=== PATIENT | female | born 1975 | race Caucasian/White ===

== ENCOUNTER → 2021-10-29 16:53 | Outpatient (CLI) | payer BC, SELFPAY | PROVIDERS: Visit Provider Nurse Practitioner | DX: U07.1 COVID-19 (principal) | CPT/HCPCS: C9803; U0003; U0005 ==

== ENCOUNTER 2024-02-05 09:03 | Emergency (ER) | payer OTHER, SELFPAY ==
[2024-02-05 09:20] VITALS: BP 161/87; PULSE 79; RESP 18; TEMP 36.9; O2SAT 96; BMI 49.1
--- NOTE | 2024-02-05 09:27 | ED_ITS ---
Discharge Plan Disposition Patient Disposition: Home, Self-Care Condition: Good Prescriptions Prescriptions: New azithromycin [Zithromax] 250 mg tablet 250 mg PO UD DOSE PK Qty: 6 0RF Rx Instructions: Take two (2) tablets today, then one (1) tablet days #2 thru #5 benzonatate 100 mg capsule 100 mg PO TIDP PRN (Reason: Cough) Qty: 30 0RF methylprednisolone 4 mg Tablets,Dose Pack 4 mg PO DIRECTED 6 Days Qty: 21 0RF Rx Instructions: Take 1 pack as directed for 6 days Referrals Follow up/Referrals: Gianna Coyne APRN [Primary Care Provider] - See instructions Activity Restrictions/Add. Instructions Additional Instructions/Restrictions: Drink plenty of fluids. Take tylenol or ibuprofen for pain or fever. Take the medications as directed. Follow up with your regular doctor. GO TO THE ER FOR ANY WORSENING SYMPTOMS Clinical Impressions Clinical Impression: Pharyngitis, Bronchitis Stand Alone Forms Stand Alone Forms: Work/School Release Instructions Patient Instructions: Sore Throat, DI for Pharyngitis/Tonsillopharyngitis -- Adult, DI for Acute Bronchitis Discharge ED Provider: Max Higgins [facility] – [place] HPI General Stated complaint: deep painful cough congestion ear pain fever Time Seen by Provider: 02/05/24 09:27 History of Present Illness Provider Complaint: She states that for the past 3 days she has had worsening chest tightness, sore throat and malaise. Related Data Previous Rx's Medication Instructions Recorded azithromycin 250 mg tablet 250 mg PO UD DOSE PK #6 tabs 02/05/24 (Zithromax) benzonatate 100 mg capsule 100 mg PO TIDP PRN Cough #30 caps 02/05/24 methylprednisolone 4 mg tablets in 4 mg PO DIRECTED 6 days #21 tabs 02/05/24 a dose pack Allergies Allergy/AdvReac Type Severity Reaction Status Date / Time latex [LATEX] Allergy Unknown Verified 02/05/24 09:33 Penicillins [PENICILLINS] Allergy Unknown Verified 02/05/24 09:33 [facility] Disclaimer: The information contained in this section may have been updated after the patient was seen, as this information can be updated by other users. Social History Smoking Status: Never smoker alcohol intake: never substance use type: denies use current occupational status: unemployed Travel in the last 8 weeks: None household members: family housing: house ROS Obtained: Yes All systems reviewed & no additional complaints except as documented Constitutional Constitutional: Reports chills and Reports fever(s) Eyes Eyes: Denies eye discharge ENT Ears, Nose, Mouth, and Throat: Reports as per HPI Cardiovascular Cardiovascular: Denies chest pain Respiratory Respiratory: Denies chest congestion and Reports cough Gastrointestinal Gastrointestingal: Reports nausea; Denies abdominal pain, constipation, cramping, diarrhea or vomiting Musculoskeletal Musculoskeletal: Denies arthralgias Integumentary/Breasts Skin/Breast: Denies rash Neurologic Neurologic: Denies paresthesias Physical Exam General General appearance: alert and in no apparent distress Head Head exam: atraumatic, normocephalic and normal inspection Eye Eye exam: Present normal appearance, PERRL and EOMI ENT ENT exam: Present mucous membranes moist and normal external ear exam Expanded ENT Exam TM/Canal exam: Bilateral TM: erythema and bulging Nose exam: Absent sinus tenderness Mouth exam: Present normal external inspection; Absent drooling Teeth exam: Present normal inspection Throat exam: Present tonsillar erythema, tonsillomegaly and tonsillar exudate Neck Neck exam: Present normal inspection, full ROM and trachea midline; Absent tenderness, meningismus or lymphadenopathy Chest Chest inspection: Present normal inspection and symmetric chest wall rise; Absent tenderness Respiratory Respiratory exam: Present normal lung sounds bilaterally; Absent respiratory distress, wheezes or stridor Cardiovascular Cardiovascular exam: Present regular rate and normal rhythm; Absent systolic murmur or diastolic murmur Abdominal Exam Abdominal exam: Present soft and normal bowel sounds; Absent distention, tenderness, guarding, rebound or rigidity Extremities Exam Extremities exam: Present normal inspection and normal capillary refill; Absent calf tenderness Back Exam Back exam: Present normal inspection and full ROM; Absent tenderness, CVA tenderness (R) or CVA tenderness (L) Neurological Exam Neurological exam: Present alert, oriented X3 and CN II-XII intact Psychiatric Psychiatric exam: Present normal affect and normal mood Skin Skin exam: Present warm, dry, intact and normal color Medical Decision Making Medical Records Medical records reviewed: No I reviewed the patient's medical records. Emeterio Inquiry Pt receiving controlled substance: No Lab Data Lab results reviewed: Yes I reviewed the patient's lab results.
--- NOTE | 2024-02-05 09:29 | XR_ITS ---
PROCEDURE INFORMATION: Exam: XR Chest Exam date and time: 02/05/2024 9:27 AM Age: 48 years old Clinical indication: Cough TECHNIQUE: Imaging protocol: Radiologic exam of the chest. Views: 2 views. COMPARISON: No relevant prior studies available. FINDINGS: Lungs: Unremarkable. No consolidation. Pleural spaces: Unremarkable. No pleural effusion. No pneumothorax. Heart/Mediastinum: Unremarkable. No cardiomegaly. Bones/joints: Unremarkable. IMPRESSION: No acute findings.
[2024-02-05 10:23] VITALS: BP 161/87; PULSE 79; RESP 18; TEMP 36.9; O2SAT 96
--- NOTE | 2024-02-05 10:24 | PC.NURSE ---
Sent covid swab to lab via tube
== END 2024-02-05 10:23 | disposition home or self-care (01) ==
PROVIDERS: Emergency Provider Nurse Practitioner Family; PCP Nurse Practitioner
DX: R07.1 Chest pain on breathing (principal); J20.9 Acute bronchitis, unspecified; J02.9 Acute pharyngitis, unspecified; R05.9 Cough, unspecified; R50.9 Fever, unspecified
CPT/HCPCS: 71046; 87635; 99204; 99212; G0463

== ENCOUNTER 2024-09-12 13:20 | Emergency (ER) | payer OTHER, SELFPAY ==
[2024-09-12 13:50] VITALS: BP 166/87; PULSE 95; RESP 18; TEMP 36.6; O2SAT 98; BMI 49.0
--- NOTE | 2024-09-12 14:14 | ED_ITS ---
Discharge Plan Disposition Patient Disposition: Home, Self-Care Condition: Good Prescriptions Prescriptions: New doxycycline hyclate 100 mg capsule 100 mg PO BID Qty: 20 0RF prednisone 20 mg tablet 20 mg PO BID 5 Days Qty: 10 0RF benzonatate 100 mg capsule 100 mg PO TID PRN (Reason: cough) Qty: 30 0RF guaifenesin [Mucinex] 600 mg tablet extended release 12hr 1,200 mg PO BID PRN (Reason: cough) Qty: 20 0RF albuterol sulfate 90 mcg/actuation HFA aerosol inhaler 2 puff inhalation Q6H PRN (Reason: shortness of breath or wheezing) Qty: 8.5 0RF No Action Emgality Syringe 120 mg/mL syringe 120 mg SQ MONTHLY Patient Comments: PLEASE SEE ATTACHED FOR DETAILED DIRECTIONS Referrals Follow up/Referrals: Gianna Coyne APRN [Primary Care Provider] - See instructions Activity Restrictions/Add. Instructions Additional Instructions/Restrictions: * Start antibiotic today. Be sure to complete entire prescription even if feeling better * Monitor temp. Tylenol every 4 hours as needed and / or ibuprofen every 6 hours as needed ( As long as your primary care physician has told you that it ok to take both. For fever/aches/pains ER if no less than 101 despite Tylenol or Motrin * Humidifier/vaporizer or hot steamy shower * Inhaler every 4-6 hours as needed like we discussed. If unsure how to use it, ask pharmacist to demonstrate how. Should help open airways and improve cough, wheezing, and shortness of breath * Mucinex during the day for your cough and cough suppressant only at night. Be sure to drink lots of water. Insurance may not cover a prescriptions for mucinex. Might be cheaper to get 400mg tablets and take 2 tablet in the morning, mid-day and evening with lots of water. *Tessalon Perles will not cause drowsiness but use at bedtime to help stop cough so that you may get some rest. *Start steroid today. Helps with inflammation therefore, cough and wheezing. Follow directions on the package. Reviewed side effects. Patient reports taking them before. Follow up IMMEDIATELY for new or worsening of symptoms OR no noticeable improvement over the next 48-72 hours. 911 immediately for any life threatening symptoms such as chest pain or difficulty breathing Clinical Impressions Clinical Impression: Bronchitis, Sinusitis Instructions Patient Instructions: DI for Sinusitis, Acute Bronchitis Print Language Print Language: Liberian Discharge ED Provider: Mahi Fonseca [facility] [place] HPI General Stated complaint: congestion, cough, diarrhea, sinus pressure, fever Mode of Arrival: Ambulatory Source of Information: Patient Limitations: No Limitations Time Seen by Provider: 09/12/24 14:14 Description of Symptoms (Recalled from Triage Doc. by RN): PATIENT C/O CONGESTION, EAR PAIN, WHEEZING AND HEADACHE X 1 WEEK HEENT Symptoms (Recalled from RN notes): Yes Resp Symptoms (Recalled from RN notes): Yes Skin Symptoms (Recalled from RN notes): No MS Symptoms (Recalled from RN notes): No Functional Status (Recalled from RN notes): WNL History of Present Illness Provider Complaint: Patient states that she has been sick for about a week States that she has been having sinus congestion and pressure, cough, wheezing on and off headache and over all not feeling well States today she wasnt feeling any better so she came in to get checked Related Data Home Medications ?Medication ?Instructions ?Recorded ?Confirmed galcanezumab-gnlm 120 mg/mL 120 mg SQ MONTHLY 09/12/24 09/12/24 subcutaneous syringe (Emgality) Previous Rx's ?Medication ?Instructions ?Recorded albuterol sulfate 90 mcg/actuation 2 puff inhalation Q6H PRN 09/12/24 aerosol inhaler shortness of breath or wheezing #8.5 grams benzonatate 100 mg capsule 100 mg PO TID PRN cough #30 caps 09/12/24 doxycycline hyclate 100 mg capsule 100 mg PO BID #20 caps 09/12/24 guaifenesin 600 mg tablet, 1,200 mg (2 x 600 mg) PO BID PRN 09/12/24 extended release 12 hr (Mucinex) cough #20 tabs prednisone 20 mg tablet 20 mg PO BID 5 days #10 tabs 09/12/24 Allergies Allergy/AdvReac Type Severity Reaction Status Date / Time latex (LATEX) Allergy Unknown Verified 02/05/24 09:33 Penicillins (PENICILLINS) Allergy Unknown Verified 02/05/24 09:33 Worker's Comp Is this a Worker's Comp case?: No [facility] Disclaimer: The information contained in this section may have been updated after the patient was seen, as this information can be updated by other users. Medical History (Updated 09/12/24 @ 14:39 by Mahi Fonseca APRN) Anemia Depression Anxiety Migraine Diabetes mellitus type 1 Surgical History (Updated 09/12/24 @ 14:13 by Sophia Morel RN) History of cholecystectomy History of section History of tubal ligation Social History Smoking Status: Never smoker alcohol intake: never substance use type: denies use current occupational status: unemployed household members: family housing: house ROS Obtained: Yes All systems reviewed & no additional complaints except as documented and Yes Systems reviewed as appropriate & no additional complaints except as documented Constitutional Constitutional: Reports system reviewed and no additional complaints, except as documented, Reports as per HPI, Reports body ache and Reports headache(s) ENT Ears, Nose, Mouth, and Throat: Reports system reviewed and no additional comp laints, except as documented, Reports as per HPI, Reports headache(s), Reports sinus pain and Reports sinus pressure Cardiovascular Cardiovascular: Reports system reviewed and no additional complaints, except as documented and Reports as per HPI Respiratory Respiratory: Reports system reviewed and no additional complaints, except as documented, Reports as per HPI, Reports chest congestion, Reports cough and Reports wheezing Gastrointestinal Gastrointestingal: Reports system reviewed and no additional complaints, except as documented and as per HPI Neurologic Neurologic: Reports headache(s) Allergic/Immunologic Allergic/Immunologic: Reports wheezing Physical Exam General General appearance: alert and in no apparent distress ENT ENT exam: Present mucous membranes moist Expanded ENT Exam Nose exam: Present sinus tenderness Throat exam: Present tonsillar erythema; Absent tonsillomegaly or tonsillar exudate Respiratory Respiratory exam: Present normal lung sounds bilaterally; Absent respiratory distress or wheezes Cardiovascular Cardiovascular exam: Present regular rate, normal rhythm and normal heart sounds Neurological Exam Neurological exam: Present alert, oriented X3 and normal gait Medical Decision Making Medical Records Screening: Per USPSTF and CDC recommendations, given the prevalence of disease in our region, it is our hospital?s policy to screen for HIV and viral Hepatitis for all patients aged 18 and over and those with ongoing risk factors. Emeterio Inquiry Pt receiving controlled substance: No Emeterio was queried for this patient: No Vital Signs: 09/12/24 13:50 Temperature 97.8 F Temperature Source Oral Pulse Rate [Left Brachial] 95 H Respiratory Rate 18 Blood Pressure [Left Arm] 166/87 H Blood Pressure Mean [Left Arm] 113 Blood Pressure Source [Left Arm] Automatic Cuff Blood Pressure Position [Left Arm] Sitting 02 Sat by Pulse Oximetry 98 Oxygen Delivery Method Room Air
[2024-09-12 14:32] LABS: UTC Influenza A Antigen Negative (Negative)
[2024-09-12 14:33] LABS: UTC Influenza B Antigen Negative (Negative)
[2024-09-12 14:46] VITALS: BP 166/87; PULSE 95; RESP 18; TEMP 36.6; O2SAT 98
== END 2024-09-12 14:52 | disposition home or self-care (01) ==
PROVIDERS: Emergency Provider Nurse Practitioner; PCP Nurse Practitioner
DX: J20.9 Acute bronchitis, unspecified (principal); J01.90 Acute sinusitis, unspecified; R09.81 Nasal congestion; R05.9 Cough, unspecified; R19.7 Diarrhea, unspecified; R50.9 Fever, unspecified; H92.09 Otalgia, unspecified ear; R51.9 Headache, unspecified
CPT/HCPCS: 87804; 99212; G0381

== ENCOUNTER 2025-03-24 15:46 | Emergency (ER) | payer SELFPAY ==
[2025-03-24 15:50] VITALS: BP 180/95; PULSE 116; RESP 16; TEMP 36.8; O2SAT 96; BMI 52.9
[2025-03-24 15:57] VITALS: BP 180/95; PULSE 116; RESP 16; TEMP 36.8; O2SAT 96
--- OUTSIDE RECORDS SUMMARY | 2025-03-24 16:08 | XMS_ITS | Clinical Summary ---
Author Organization [facility] Address [address] [place] [phone] Phone Care Team Providers Care Chemical Project Engineer Name Role Phone Angelic Burgess DO Primary Care Provider [phone] Allergies Active Allergy Reactions Criticality Noted Date Comments Latex Hives,Swelling High 06/12/2013 Penicillins Hives Medium 06/12/2013 Liraglutide Hives,Rash 09/15/2020 Medications * This document contains information received from the source organization and may not represent a complete record from that organization. aspirin (ASPIRIN) 81 mg Oral Tablet, ChewableIndication s:Type 2 diabetes mellitus with hyperglycemia, without long-term current use of insulin (HCC),Essential hypertension,Mixed hyperlipidemia Take 1 Tab by mouth daily. 30 Tab 11 11/24/19 19 Active glucose (DEX4 GLUCOSE) 4 gram Oral Tablet, ChewableIndication s:Type 2 diabetes mellitus with hyperglycemia, without long-term current use of insulin (HCC) Take 4 Tabs by mouth as needed for Low blood sugar. 30 Tab 11 11/24/19 19 Active Blood Sugar Diagnostic Misc StripIndications:T ype 2 diabetes mellitus with hyperglycemia, without long-term current use of insulin (HCC) Use to check blood sugar twice daily Dx E11.9 Brand as per insurance 300 Strip 4 10/30/19 20 Active Blood-Glucose Meter Misc KitIndications:Typ e 2 diabetes mellitus with hyperglycemia, without long-term current use of insulin (HCC) Use to check blood sugar twice daily 1 Kit 10/30/19 20 Active Lancets Misc MiscIndications:Ty pe 2 diabetes mellitus with hyperglycemia, without long-term current use of insulin ([facility]) Use to check blood sugar twice daily Dx E11.9 Brand as per insurance 3 box 4 10/30/19 20 Active baclofen (LIORESAL) 10 mg Oral TabletIndications: Muscle spasm of back TAKE 1 TABLET BY MOUTH TWICE A DAY 60 Tab 1 06/12/20 20 Active Alcohol Swabs (ALCOHOL PREP SWABS) Top Pads, MedicatedIndicatio ns:Type 2 diabetes mellitus with hyperglycemia, without long-term current use of insulin ([facility]) Use to check blood sugar twice daily Dx E11.9 100 Each 11 07/18/20 20 Active promethazine (PHENERGAN) 25 mg Oral Tablet Take 1 Tab by mouth every 6 hours as needed for Nausea for up to 20 doses. 20 Tab 02/28/20 21 Active docusate sodium (COLACE) 100 mg Oral Capsule Take one capsule three times a day while on pain meds 90 Cap 02/28/20 21 Active albuterol (PROVENTIL HFA;VENTOLIN HFA) 90 mcg/actuation Inhl HFA Aerosol Inhaler Inhale 2 Puffs into the lungs every 6 hours as needed for Wheezing or Shortness of Breath. 1 Each 08/04/20 21 Active fluticasone-umecli dinium-vilanterol (TRELEGY ELLIPTA) 100-62.5-25 mcg Inhl Disk with DeviceIndications: Acute bronchitis, unspecified organism Inhale 1 Puff into the lungs daily. 30 Each 2 09/02/20 21 Active UBRELVY 100 mg Oral Tablet TAKE 1 TABLET BY MOUTH ONCE FOR 1 DOSE. MAY REPEAT IN AN HOUR IF NEEDED. 15 Tablet 2 09/14/20 21 Active fluticasone propionate (FLONASE) 50 mcg/actuation Nasl Pound, SuspensionIndicati ons:Non-recurrent acute serous otitis media of both ears 2 Sprays by Nasal route daily. 1 Each 2 11/11/19 22 Active glyBURIDE (DIABETA) 5 mg Oral TabletIndications: Hyperglycemia TAKE 1 TABLET BY MOUTH 2 TIMES DAILY (WITH MEALS). IF SUGARS ARE >200 OR TAKE INJECTION 60 Tablet 02/27/20 22 Active propranoloL (INDERAL) 40 mg Oral TabletIndications: Intractable migraine without aura and with status migrainosus TAKE 1 TABLET BY MOUTH NIGHTLY 90 Tablet 03/22/20 23 Active cyanocobalamin 1,000 mcg Oral TabletIndications: B12 deficiency due to diet TAKE 1 TABLET BY MOUTH EVERY DAYOTC NOT COVERED 90 Tablet 05/02/20 23 Active RYBELSUS 7 mg Oral TabletIndications: Type 2 diabetes mellitus with hyperglycemia, without long-term current use of insulin (HCC),Type 2 diabetes mellitus with hyperlipidemia (HCC),Type 2 diabetes mellitus with hyperglycemia, without long-term current use of insulin (HCC) TAKE 1 TABLET BY MOUTH EVERY DAY 30 Tablet 8 07/06/20 24 Active JARDIANCE 25 mg Oral TabletIndications: Type 2 diabetes mellitus with hyperlipidemia (HCC),Type 2 diabetes mellitus with hyperglycemia, without long-term current use of insulin (HCC) TAKE 1 TABLET BY MOUTH EVERY DAY 90 Tablet 2 07/16/20 24 Active atorvastatin (LIPITOR) 40 mg Oral TabletIndications: Type 2 diabetes mellitus with hyperglycemia, without long-term current use of insulin (HCC),Mixed hyperlipidemia Take 1 Tablet by mouth daily. 90 Tablet 3 09/20/20 24 Active lisinopriL (PRINIVIL;ZESTRIL) 20 mg Oral Tablet tabletIndications: Essential hypertension,Type 2 diabetes mellitus with hyperglycemia, without long-term current use of insulin (HCC) Take 1 Tablet by mouth daily. 90 Tablet 3 09/20/20 24 Active VITAMIN D3 10 mcg (400 unit) Oral TabletIndications: Vitamin D deficiency TAKE 2 TABLETS BY MOUTH DAILY FOR 90 DAYS 180 Tablet 12/21/19 25 Active diclofenac (VOLTAREN) 50 mg Oral Tablet, Delayed Release (E.C.)Indications: Primary osteoarthritis of right knee Take 1 Tablet by mouth 2 times daily (with meals) for 180 days. 180 Tablet 1 09/19/20 24 025 galcanezumab-gnlm (EMGALITY SYRINGE) 120 mg/mL SubQ SyringeIndications :Migraine without aura and without status migrainosus, not intractable Subcutaneous (Inject under the skin) 2 mL every 30 days for 1 day, THEN 1 mL every 30 days for 90 days. 1 Each 5 12/11/19 25 025 Hospital, Clinic, or Other Facility Administered Medication Ordered Dose Route Frequency Start Date End Date Status lidocaine 1% 10 mg/mL (1 %) injection 1 mLIndications:De Quervain's tenosynovitis, right 1 mL IAtc 11/26/2021 Active Active Problems Problem Noted Date Diagnosed Date Migraine without aura and wi thout status migrainosus, not intractable 01/11/2025 Overview (01/11/2025): Hx propranolol, ubrelvy, maxalt Assessment & Plan (01/11/2025 9:07 AM EDT): Hx propranolol, ubrelvy, maxalt without success Currently using emgality and doing very well Primary osteoarthritis of right knee 09/19/2024 Assessment & Plan (01/11/2025 9:07 AM EDT): Plan to follow up with ortho for gel injections once it is approved by insurance Orders: diclofenac (VOLTAREN) 50 mg Oral Tablet, Delayed Release (E.C.); Take 1 Tablet by mouth 2 times daily (with meals) for 180 days. Status post arthroscopic partial medial meniscec indy 03/11/2021 Status post arthroscopic partial lateral menisce ctomy 03/11/2021 Obesity, morbid, BMI 50 or higher 07/20/2020 Assessment & Plan (11/25/2022 9:21 PM EST): Discussed diet and exercise. Encouraged small frequent meals throughout the day than one large meal. Assessment & Plan (07/20/2020 3:09 PM EDT): Working on diet and exercise. Weight is improving. Will start victoza today for diabetes that should also encourage weight loss. Type 2 diabetes mellitus wit h hyperglycemia, without long-term current use of insulin 08/04/2016 Overview (07/20/2020): Couldn't tolerate metformin. Assessment & Plan (05/10/2021 2:55 PM EDT): Having episodes of hypoglycemia. Likely due to poor appetite and eating given recent stress. Will back off on medicaiton. Have stopped insulin and decreased jardiance to 1/2 of 25mg. Assessment & Plan (10/16/2020 9:19 PM EST): Will start semaglutide 3mg every other day for a week then if tolerating well, increase to 3mg daily. Assessment & Plan (07/20/2020 3:15 PM EDT): Lab Results Component Value Date HGBA1C 8.1 (A) 07/18/2020 HGBA1C 9.9 10/12/2019 HGBA1C 10.4 11/23/2018 A1c is improving. On jardiance. Will add victoza. Essential hypertension 08/04/2016 Moderate episode of recurrent major depressive d isorder 08/04/2016 Assessment & Plan (11/25/2022 9:21 PM EST): Still struggling some due to past issues. Wants to restart the prazosin to help with her nightmares. Menorrhagia with regular cycle 08/04/2016 Family history of breast cancer in mother 2015 Restless legs syndrome (RLS) 08/04/2016 Family history of cardiovascular disease 016 Family history of malignant neoplasm of ovary in first degree relative 08/04/2016 Iron deficiency anemia due to chronic blood loss 08/04/2016 Assessment & Plan (01/11/2025 9:07 AM EDT): Orders: CBC WITH DIFF; Future IRON+TIBC; Future FERRITIN; Future B12 deficiency due to diet 08/04/2016 Assessment & Plan (01/11/2025 9:07 AM EDT): Orders: VITAMIN B12/ FOLIC ACID; Future Vitamin D deficiency 08/04/2016 Assessment & Plan (01/11/2025 9:07 AM EDT): Orders: VITAMIN D 25 HYDROXY; Future Mixed hyperlipidemia 08/04/2016 Resolved Problems Problem Noted Date Diagnosed Date Resolved Date Abdominal pain, RUQ (right upper quadrant) 03/29/2022 01/21/2024 Overview (03/29/2022): Added automatically from request for surgery [id number] Abdominal pain, RLQ (right lower quadrant) 03/29/2022 01/21/2024 Overview (03/29/2022): Added automatically from request for surgery [id number] Diarrhea 03/29/2022 01/21/2024 Overview (03/29/2022): Added automatically from request for surgery [id number] Abnormal uterine bleeding (AUB) 10/07/2021 01/21/2024 Overview (10/07/2021): Added automatically from request for surgery [id number] Insufficiency fracture of me dial condyle of femur 03/11/2021 01/21/2024 Acute bacterial sinusitis 09/19/2017 Encounters Date Type Department Care Team Description 01/09/2025 Telephone [facility] [address] [place] [place] [phone] Angelic Burgess DO Prior Authorization ([facility]) 12/26/2024 Orders Only [facility] [address] [place] [phone] Angelic Burgess DO from Last 3 Months Immunizations Immunization Administration Dates Next Due Influenza Vaccine Quadrivalent 10/30/2018 Influenza Vaccine Quadrivalent PF 06/29/2023,06/2022,08/31/2016 PPD Test 05/23/2023 Pneumococcal Polysaccharide 23 Valent 09/01/2016 ,07/20/2007 Surgical History Surgery Date Site/Laterality Comments CHOLECYSTECTOMY 10/17/2006 - 10/16/2007 TUBAL LIGATION SECTION 10/17/2006 - 10/16/2007 X2 SECTION 10/17/2008 - 10/16/2009 KNEE ARTHROSCOPY 02/27/2021 Knee/Right RIGHT ARTHROSCOPICALLY AIDED TREATMENT OF DISTAL FEMUR FRACTURE MEDIAL INCLUDES FIXATION, PARTIAL MEDIAL, PARTIAL LATERAL MENISCECTOMY MENISCECTOMY; Surgeon: Feliciano Soares MD; Location: [facility] MAIN OR; Service: Orthopedics Medical devices from this surgery are in the Medical Devices section. DENTAL SURGERY wisdom teeth and other ENDOMETRIAL ABLATION 12/17/2021 N/A ENDOMETRIAL ABLATION WITH NOVASURE DILATION AND CURETTAGE WITH MYOSURE AND HYSTEROSCOPY; Surgeon: Harleen Poole DO; Location: [facility]; Service: Gynecology Medical History Medical History Date Comments Post-operative nausea and vomiting Sciatica Asthma Bronchitis, chronic (HCC) Urinary incontinence stress inco ntinence Motion sickness Migraine aura, persistent, intractable Insufficiency fracture of medial condyle of femu r (HCC) 03/11/2021 Family History Medical History Relation Name Comments No Known Problems Brother Arrhythmia Father Heart Disease Father Heart Failure Maternal Grandfather Clotting Disorder Maternal Grandmother DV T, PE - from being bedridden Diabetes Maternal Grandmother High Blood Pressure Maternal Grandmother Breast Cancer Mother Ovarian Cancer Mother Alcohol Abuse Paternal Grandfather Heart Disease Paternal Grandfather No Known Problems Sister Anesth Problems Neg Hx Colon Cancer Neg Hx Uterine Cancer Neg Hx Relation Name Status Comments Brother Alive Father Alive Maternal Grandfather Maternal Grandmother Mother Alive Paternal Grandfather Sister Alive Social History Tobacco Use Types Packs/Day Years Used Date Smoking Tobacco: Former Cigarettes Q uit: 10/17/2006 Smokeless Tobacco: Never Tobacco Cessation:Counseling Given: Not Answered Alcohol Use Standard Drinks/Week Comments Yes 0 (1 standard drink = 0.6 oz pur e alcohol) 1-2 per week Overall Financial Resource Strain (CARDIA) Answe r Date Recorded How hard is it for you to pa y for the very basics like food, housing, medical care, and heating? Not very hard 03/29/2022 PHQ-2 Answer Date Recorded PHQ-2 Total Score 0 09/19/2024 [facility] [place] [facility] Occupat ional Health - Occupational Stress Questionnaire Answer Date Recorded Do you feel stress - tense, restless, nervous, or anxious, or unable to sleep at night because your mind is troubled all the time - these days? Rather much 04/21/2022 Exercise Vital Sign Answer Date Recorde d On average, how many days pe r week do you engage in moderate to strenuous exercise (like a brisk walk)? 2 days 03/29/2022 On average, how many minutes do you engage in exercise at this level? 120 min 03/29/2022 Hunger Vital Sign Answer Date Recorded Within the past 12 months, y ou worried that your food would run out before you got the money to buy more. Sometimes true Within the past 12 months, t he food you bought just didn't last and you didn't have money to get more. Sometimes true PRAPARE - Transportation Answer Date Re corded In the past 12 months, has l ack of transportation kept you from medical appointments or from getting medications? No 03/17 In the past 12 months, has l ack of transportation kept you from meetings, work, or from getting things needed for daily living? No 03/29/2022 Sexually Active Control Partners Comments Yes Male Comments No Sex and Gender Information Value Date Recorded Sex Assigned at Not on file Legal Sex Female 4:35 PM EDT Gender Identity Not on file Sexual Orientation Not on file Obstetrics History Para Term AB IAB SAB Ectopic Multiple Livin g Live Births 2 2 0 2 2 2 Date Outcome GA Total Labor Labor/2nd/3rd Weight Sex Type Anes PTL Ashleigh A1 A5 Name Clin M CS-Un spec Spinal Livin g Complications:Failure to Pro soila in Second Stage F CSP Epidur al Livin g Complications: distress affecting care Last Filed Vital Signs Vital Sign Reading Time Taken Comments Blood Pressure 130/84 09/19/2024 8:27 AM EST Pulse 87 09/19/2024 8:27 AM EST Temperature 36.8 C (98.3 F) 09/19/2024 8:27 AM EST Respiratory Rate 18 09/19/2024 8:27 AM EST Oxygen Saturation 97% 09/19/2024 8:27 AM EST Inhaled Oxygen Concentration - - Weight 122.5 kg (270 lb) 09/19/2024 8:27 AM EST Height 154.9 cm (5' 1 ) 12/01/2022 3:35 PM EST Body Mass Index 51.02 12/01/2022 3:35 PM EST Plan of Treatment Upcoming Encounters Date Type Department Care Team (Late st Contact Info) Description 04/01/2025 2:50 PM EDT Appointment [facility] [address] [employer] [place] [phone] Angelic Burgess, DO [address] [place] [address] Health Maintenance Due Date Last Done Comments DTaP/TDaP/Td (1 - Tdap) 1993 Hepatitis B Vaccine (1 of 3 - 19+ 3-dose series) 1993 Pneumococcal Vaccine 50+ (2 of 2 - PCV) 09/01/2017 09/01/2016, 07/20/2007 Cologuard 2019 FIT 2019 Sigmoidoscopy 2019 Virtual Colonography 2019 Zoster (1 of 2) 2024 COVID-19 Vaccine (3 - 2023-2 5 season) 2024 07/15/2021, 05/16/2021 Breast Cancer Screening 02/11/2025 02/12/20 23, 01/22/2022, 12/19/2020, Additional history exists Hemoglobin A1c 03/20/2025 09/19/2024, 06/17, 09/30/2022, Additional history exists Influenza Vaccine (Season Ended) 2025 06/29/2023, 09/24/2022, 10/30/2018, Additional history exists Annual Wellness Exam 09/19/2025 09/19/2024 Lipids 09/19/2025 09/19/2024, 06/17, 09/30/2022, Additional history exists Microalbuminuria 09/19/2025 09/19/2024, 08/2023, 02/25/2021, Additional history exists Pap Smear 12/01/2025 12/01/2022, 08/27/2021 Diabetic Eye Exam 09/19/2026 09/19/2024, 12/21/2021 Cervical Cancer Screening 12/01/2027 HPV/Pap Cotest 12/01/2027 12/01/2022 Colon Cancer Screening 11/25/2032 Colonoscopy 11/25/2032 11/25/2022 Meningococcal B Vaccine Aged Out No martin onger eligible based on patient's age to complete this topic Goals Goal Patient Goal Type Associated Problems Recent Progress Patient-Stated? Author Blood Pressure < 140/90 Blood Pressure 130/84(09/19 8:27 AM EST) No Enedelia Rivas RMA BMI (Calculated) < 30 General 52.8( 023 3:35 PM EST) Enedelia Ayala RMA Maintain a healthy diet, exercise regularly and maintain an ideal body weight General No Max, Mireya Mimi, CCMA Patient will call healthcare administrative assistant to recieve patient assistance program applications General Yes Sandie Linares RN Stay Tobacco Free Lifestyle No Mireya Santana CCMA HEMOGLOBIN A1C < 7.0 Result Component 9(09/19/2024 9:16 AM EST) No Enedelia Rivas RMA Medical Devices Implanted Type Area Mail Sorter And Delivery Device Identifier Shelf Expiration Date Model / Serial / Lot Kt Bone Cemnt [id number] Accuport Strl - [id number] Implanted:Qty: 1 on 02/27/2021 by Feliciano Soares MD at [facility] Right: Knee JONG:JONG 12/09/2023 [id number] / / [id number] Procedures Procedure Name Priority Date/Time Associated Diagnosis Comments MICROALBUMIN/CREATI NINE RATIO URINE Routine 09/19/2024 9:25 AM EST Type 2 diabetes mellitus without complication, unspecified whether long term care pharmacist insulin use (HCC) LIPID PANEL REFLEX Routine 09/19/2024 9: 16 AM EST Type 2 diabetes mellitus without complication, unspecified whether senior living insulin use (HCC) HEMOGLOBIN A1C Routine 09/19/2024 9:16 AM EST Type 2 diabetes mellitus without complication, unspecified whether senior living insulin use (HCC) MM MAMMO DIGITAL ELLYN SCREEN BILAT Routine 02/11/2023 1:45 PM EDT Encounter for screening mammogram for malignant neoplasm of breast SCALPER OPERATOR CYTOLOGY REQUEST (PAP ONLY) Routine 12/01/2022 4:12 PM EST Well woman exam with routine gynecological exam GMED EGD-COLONOSCOPY Routine 11/25/2022 9:00 AM EST HM DIABETES EYE EXAM Routine 12/21/2021 from Last 3 Months or Most Recently Relevant to Health Maintenance Results * (ABNORMAL) MICROALBUMIN/CREATININE RATIO URINE (09/19/2024 9:25 AM EST) Urine Microalb 44.2 mg/L 09/19/2024 4:26 PM EST PREFERRED [facility] Urine Creatinine 127.0 mg/dL 09/19/2024 4:26 PM EST [facility], [facility] Ur Microalb/Creat 35(H) 0 - 30 mg/g 09/19/2024 4:26 PM EST [facility] Urine URINE SPECIMEN COLLECTION / Unknown 09/19/2024 9:25 AM EST 09/19/2024 9:25 AM EST Angelic Burgess DO URINE ORDERABLES Final Resul t PREFERRED [facility] [address] [facility], [place] [address] [facility] [address] [place] [address] * (ABNORMAL) LIPID PANEL REFLEX (09/19/2024 9:16 AM EST) Cholesterol 184 <200 mg/dL 09/19/2024 7:15 PM EST [facility] Comment: < 200 Desirable 200 - 239 Borderline High >= 240 High Triglyceride 103 <150 mg/dL 09/19/2024 7:15 PM EST [facility] Comment: < 150 Normal 150 - 199 Borderline High 200 - 499 High >= 500 Very High HDL 44 >=40 mg/dL 09/19/2024 7:15 PM EST [facility] Comment: > 60 Optimal 40 - 60 Acceptable < 40 Low LDL Calculated 121(H) <100 mg/dL 09/19/2024 7:15 PM EST [facility], [facility] Non-HDL-C Calculated 140(H) <=129 mg/dL 09/19/2024 7:15 PM EST [facility], [facility] Comment: <130 Desirable 130-159 Above Desirable 160-189 Borderline High 190-219 High >= 220 Very High Fasting Specimen? Yes None 024 7:15 PM EST [facility] Blood VENOUS BLOOD / Unknown Venipuncture / Unknown 09/19/2024 9:16 AM EST 09/19/2024 9:16 AM EST Angelic Burgess DO CHEMISTRY ORDERABLES Final R esult Performing Organization Address [facility] [address]/[facility] Co de Phone Number [employer] [address] , [place] [address] [facility] [address] [place] [phone] * (ABNORMAL) HEMOGLOBIN A1C (09/19/2024 9:16 AM EST) Hgb A1C 9.0(H) 4.2 - 5.6 % 09/19/2024 3:52 PM EST [employer] Est. Avg Glucose 212 mg/dL 09/19/2024 3:52 PM EST [facility] Blood VENOUS BLOOD / Unknown Venipuncture / Unknown 09/19/2024 9:16 AM EST 09/19/2024 9:16 AM EST Narrative [employer] - 09/19/2024 3:52 PM EST REFERENCE RANGE: Normal: 4.0-5.6% Pre-diabetes: 5.7-6.4% Provisional diagnosis of diabetes: >6.4% Hgb F>10% and anything which shortens red cell survival, such as hemolytic anemia, or unstable hemoglobin variants such as HbSS, HbSC, or HbCC, will lower the HbA1c value associated with a given level of glycemic control. Angelic Burgess DO CHEMISTRY ORDERABLES Final R esult Performing Organization Address [facility] [address]/[facility] Co de Phone Number [employer] [address] [place] [phone] [facility] [address] [place] [phone] * MM MAMMO DIGITAL ELLYN SCREEN BILAT (02/11/2023 1:45 PM EDT) Anatomical Region Laterality Modality Breast Bilateral Mammography 02/11/2023 3:25 PM EDT Impressions 02/11/2023 3:25 PM EDT Negative ([id number]) ~ RECOMMENDATION: Routine screening mammogram in 1 year. ~ DISCLAIMER * Any patient with a palpable abnormality, unexplained by breast imaging, should be managed on clinical basis by the attending physician. * Breast imaging has a false negative rate of 15%. * The patient was notified by mail of the results of this examination. *The patient's information was entered into a reminder system with a target due date for the next mammogram, in accordance with the [employer] and the Society of Breast Imaging recommendations. Narrative 02/11/2023 3:25 PM EDT Procedure:MM MAMMO DIGITAL ELLYN SCREEN BILAT ~ Reason for exam: screening, asymptomatic. Z12.31-Encounter for screening mammogram for malignant neoplasm of [id number]-MDL-16-CM ~ MM MAMMO DIGITAL ELLYN SCREEN BILAT Bilateral CC and MLO view(s) were taken. Technologist: RT Audra There are scattered fibroglandular densities. Prior study comparison: Compared with prior studies the most recent being 01/22/22, 12/19/20 No mammographic evidence of malignancy. ~ Procedure Note Earlene Serrano MD - 02/11/2023 Procedure:MM MAMMO DIGITAL ELLYN SCREEN BILAT ~ Reason for exam: screening, asymptomatic. Z12.31-Encounter for screening mammogram for malignant neoplasm of rapynm-LYG-31-CM ~ MM MAMMO DIGITAL ELLYN SCREEN BILAT Bilateral CC and MLO view(s) were taken. Technologist: RT Audra There are scattered fibroglandular densities. Prior study comparison: Compared with prior studies the most recentbeing 01/22/22, 12/19/20 No mammographic evidence of malignancy. ~ IMPRESSION: Negative ([id number]) ~ RECOMMENDATION: Routine screening mammogram in 1 year. ~ DISCLAIMER * Any patient with a palpable abnormality, unexplained by breast imaging, should be managed on clinical basis by the attending physician. * Breast imaging has a false negative rate of 15%. * The patient was notified by mail of the results of this examination. *The patient's information was entered into a reminder system with atarget due date for the next mammogram, in accordance with the [employer] and the Society of Breast Imaging recommendations. Jeanna Vo MD IMG MAMMOGRAPHY ORD ERABLES Final Result * SCALPER OPERATOR CYTOLOGY REQUEST (PAP ONLY) (12/01/2022 4:12 PM EST) CASE REPORT Gynecologic Cytology Report Case: [id number] Authorizing Provider: Harleen Poole Collected: 12/01/20221611 DO Annita Ordering Location: [facility] Received: 12/01/2022 1612 First Screen: Bart Moore, WILLIAMS Rescreen: Dee Jimenez, WILLIAMS Specimen: LIQUID-BASED PAP - CERVICAL/ENDOCERV ICAL, Cervix, Endocervical 12/02/2022 4:16 PM EST [facility] PAP FINAL DIAGNOSIS Negative for intraepithelial lesion or malignancy 12/02/2022 4:16 PM EST [facility] at 1616 EST MICROSCOPIC DESCRIPTION Microscopic examination is performed and the findings corroborate the diagnosis. 12/02/2022 4:16 PM EST [facility] PAP SMEAR ADEQUACY Satisfactory for evaluation 12/02/2022 4:16 PM EST [facility] ENDOCERVICAL T-ZONE Transformation zone present 12/02/2022 4:16 PM EST [facility] EMBEDDED IMAGES 4:16 PM EST [facility] PAP DISCLAIMER The Pap Smear is a screening test that aids in the detection of cervical cancer and cancer precursors. Both false positive and false negative results can occur. The test should be used at regular intervals, and positive results should be confirmed before definitive therapy. Processed using the ThinPrep Lighting Technician Automated cytology screening device (Roamz). 12/02/2022 4:16 PM EST [facility] Thin Prep ENDOCERVICAL STRUCTURE / Unknown 12/01/2022 4:12 PM EST 12/01/2022 4:12 PM EST us Harleen Poole DO CYTOLOGY ORDERABLE S Final Result [facility] [address] [place] [address] * GMED EGD-COLONOSCOPY (11/25/2022 9:00 AM EST) 11/25/2022 9:00 AM EST Impressions [facility] - 11/25/2022 10:26 AM EST Normal mucosa in the whole examined duodenum. (Biopsy). Erythema and atrophy in the whole stomach compatible with non-erosive gastritis. (Biopsy). Grade A esophagitis in the gastroesophageal junction compatible with esophagitis. Normal mucosa in the terminal ileum. Normal mucosa in the whole colon. (Biopsy). Mild diverticulosis of the sigmoid colon. Plan: Await pathology results High dose PPI bid. Follow-up in the office at next available appt Screening Colonoscopy in 10 years. This section is an excerpt of the full report. Damien Santamaria MD GI PROCEDURE ORDERABLES Fi nal Result [facility] [address] [place] [id number] * DIABETES EYE EXAM (12/21/2021) Left Diabetic Retinopathy Not Present Present/Not Present SEP OFFICE Right Diabetic Retinopathy Not Present Present/Not Present SEP OFFICE Dexter Liu OD HEALTH MAINTENANCE Final Result SEP OFFICE from Last 3 Months or Most Recently Relevant to Health Maintenance Insurance [facility] Care Teams Chemical Project Engineer Relationship Specialty Start Date End Date Angelic Burgess DO Quarterly [address] [id number] PCP - General Family Medicine 12/26/23
--- OUTSIDE RECORDS SUMMARY | 2025-03-24 16:08 | XMS_ITS | Clinical Summary ---
Author Organization [facility] Address [address] [place] [address] Care Team Providers Care Alteration Workroom Supervisor Name Role Phone Eric Suh MD Primary Care Provider [phone] Allergies Active Allergy Reactions Criticality Noted Date Comments Latex 12/25/2010 Penicillins 12/25/2010 Medications No known medications Social History Tobacco Use Types Packs/Day Years Used Date Smoking Tobacco: Never Alcohol Use Standard Drinks/Week Comments No 0 (1 standard drink = 0.6 oz pur e alcohol) Comments No Sex and Gender Information Value Date Recorded Sex Assigned at Not on file Legal Sex Female 5:19 AM EST Gender Identity Not on file Sexual Orientation Not on file Last Filed Vital Signs Vital Sign Reading Time Taken Comments Blood Pressure 98/61 12/25/2010 2:02 PM EST Pulse 65 12/25/2010 2:02 PM EST Temperature 36.6 C (97.8 F) 12/25/2010 10:13 AM EST Respiratory Rate 18 12/25/2010 2:02 PM EST Oxygen Saturation 100% 12/25/2010 2:02 PM EST Inhaled Oxygen Concentration - - Weight 113.4 kg (250 lb) 12/25/2010 10:13 AM EST Height 154.9 cm (5' 1 ) 12/25/2010 10:13 AM EST Body Mass Index 47.24 12/25/2010 10:13 AM EST Plan of Treatment Not on file Care Teams Alteration Workroom Supervisor Relationship Specialty Start Date End Date Eric Suh MD [address] [place] [address] PCP - General 12/25/10
--- OUTSIDE RECORDS SUMMARY | 2025-03-24 16:08 | XMS_ITS | Encounter Summary ---
Author Organization [facility] Address [place] [address] Care Team Providers Care Crime Scene Technician Name Role Phone Angeilc Burgess DO Primary Care Provider [phone] Reason for Visit * Reason Onset Date Comments Prior Authorization 01/09/2025 Emgality Encounter Details Date Type Department Care Team (Late st Contact Info) Description 01/09/2025 Telephone SEP Sylvia [address] [place] [place] [address] Angelic Burgess DO [address] [place] [id number] Prior Authorization (Emgality) Social History Tobacco Use Types Packs/Day Years Used Date Smoking Tobacco: Former Cigarettes Q uit: 10/17/2006 Smokeless Tobacco: Never Alcohol Use Standard Drinks/Week Comments Yes 0 (1 standard drink = 0.6 oz pur e alcohol) 1-2 per week Overall Financial Resource Strain (CARDIA) Answe r Date Recorded How hard is it for you to pa y for the very basics like food, housing, medical care, and heating? Not very hard 03/29/2022 PHQ-2 Answer Date Recorded PHQ-2 Total Score 0 09/19/2024 [facility] Occupat ional Health - Occupational Stress [...] on file Sexual Orientation Not on file documented as of this encounter Functional Status * Is the person deaf or does he/she have serious difficulty hearing? Answer Date of Assessment Author No 07/18/2020 4:17 PM WILLIAMT Karissa Kaminski RMA * Is the person blind or does he/she have serious difficulty seeing even when wearing glasses? Answer Date of Assessment Author No 07/18/2020 4:17 PM EDT Karissa Kaminski RMA * Does this person have serious difficulty walking or climbing stairs? Answer Date of Assessment Author No 07/18/2020 4:17 PM WILLIAMT Karissa Kaminski RMA * Does this person have difficulty dressing or bathing? Answer Date of Assessment Author No 07/18/2020 4:17 PM WILLIAMT Karissa Kaminski RMA * Because of a physical, mental or emotional condition, does this person have difficulty doing errands alone such as visiting a doctor's office or shopping? Answer Date of Assessment Author No 07/18/2020 4:17 PM Karissa Rhoades RMA documented as of this encounter Mental Status * Because of a physical, mental or emotional condition, does this person have serious difficulty concentrating, remembering or making decisions? Answer Entry Date Author No 07/18/2020 4:17 PM EDT Karissa Kaminski RMA documented in this encounter Miscellaneous Notes * Telephone Encounter - Lindy Howe MA - 01/11/2025 7:52 AM EDT Can you addend your note from September to include this information? * Telephone Encounter - Jeanna Heller RMA - 01/09/2025 3:17 PM EDT Please advise * Telephone Encounter - Maci Constantino MA - 01/09/2025 1:40 PM EDT Select the most appropriate reason for this telephone message: Prior Authorization Request Who is requesting the Prior Auth: [facility] What is the Prior Auth for: Medication Medication name/Dosage/ Frequency: galcanezumab-gnlm (EMGALITY SYRINGE) 120 mg/mL SubQ Syringe 1 Each 5 12/11/2024 03/12/2025 Sig - Route: Subcutaneous (Inject under the skin) 2 mL every 30 days for 1 day, THEN 1 mL every 30 days for 90 days. - Subcutaneous . Did the pharmacy suggest an alternate medication: No. Pharmacy Name & Location: [facility]/pharmacy #[id number] [phone] [place] [address] SERGIO #: [id number] Is the patient???s insurance plan that is on file up to date: Yes Informed patient that prior authorizations can take up to 10 business days for response: no Return Method of Communication: N/A Additional Information: Mary pedraza PA was denied due to not receiving clinical notes. Fax clinical info to [phone] Mary states notes should include pt's drug history & documentation that pt's condition has improved while on therapy. documented in this encounter Plan of Treatment Upcoming Encounters Date Type Department Care Team (Late st Contact Info) Description 04/01/2025 2:50 PM EDT Appointment [facility] [address] [place] [id number] Angelic Burgess DO [address] [place] [place] [id number] documented as of this encounter Goals Goal Patient Goal Type Associated Problems Recent Progress Patient-Stated? Author Blood Pressure < 140/90 Blood Pressure 130/84(09/19 8:27 AM EST) No Enedelia Rivas RMA BMI (Calculated) < 30 General 52.8( 023 3:35 PM EST) Enedelia Ayala RMA Maintain a healthy diet, exercise regularly and maintain an ideal body weight General No Mireya Santana CCMA Patient will call attending ambulatory care to recieve patient assistance program applications General Yes Sandie Linares RN Stay Tobacco Free Lifestyle No Mireya Santana CCMA HEMOGLOBIN A1C < 7.0 Result Component 9(09/19/2024 9:16 AM EST) No Enedelia Rivas RMA documented as of this encounter Visit Diagnoses Not on filedocumented in this encounter Additional Health Concerns Assessment Noted Time PHQ-9 Depression Total Score: 6 09/19/20 24 8:00 AM EST documented as of this encounter Care Teams Crime Scene Technician Relationship Specialty Start Date End Date Angelic Burgess DO [address] [place] [id number] PCP - General Family Medicine 12/26/23 documented as of this encounter
--- NOTE | 2025-03-24 16:18 | ED_ITS ---
Discharge Plan Disposition Patient Disposition: Home, Self-Care Prescriptions Prescriptions: New erythromycin 5 mg/gram (0.5 %) ointment 1 applic ophthalmic (eye) TID 7 Days Qty: 3.5 0RF No Action Emgality Syringe 120 mg/mL syringe 120 mg SQ MONTHLY Patient Comments: PLEASE SEE ATTACHED FOR DETAILED DIRECTIONS doxycycline hyclate 100 mg capsule 100 mg PO BID Qty: 20 0RF prednisone 20 mg tablet 20 mg PO BID 5 Days Qty: 10 0RF benzonatate 100 mg capsule 100 mg PO TID PRN (Reason: cough) Qty: 30 0RF guaifenesin [Mucinex] 600 mg tablet extended release 12hr 1,200 mg PO BID PRN (Reason: cough) Qty: 20 0RF albuterol sulfate 90 mcg/actuation HFA aerosol inhaler 2 puff inhalation Q6H PRN (Reason: shortness of breath or wheezing) Qty: 8.5 0RF Referrals Follow up/Referrals: Angelic Burgess DO [Primary Care Provider, Family Practice] - See instructions Activity Restrictions/Add. Instructions Additional Instructions/Restrictions: Today you were evaluated in the emergency department for right eye pain. You were diagnosed with a corneal abrasion, please use erythromycin ointment as we discussed. Please half-inch ribbon in the right eye 3 times a day. Please follow-up with eye doctor within 48 hours, return to the ED for any worsening of your condition. Clinical Impressions Clinical Impression: Corneal abrasion Qualifiers: Encounter type: initial encounter Laterality: right Qualified Code(s): S05.01XA - Injury of conjunctiva and corneal abrasion without foreign body, right eye, initial encounter Instructions Patient Instructions: DI for Corneal Abrasion Print Language Print Language: Armenian Discharge ED Provider: Familia Kaur General Adult HPI <Lissette Lamb APRN - Last Filed: 03/24/25 16:41> General Chief complaint: Eye Problems Stated complaint: AO 6-8 right eye pain Time Seen by Provider: 03/24/25 15:59 Mode of Arrival: Ambulatory Source of Information: Patient Description of Symptoms (Recalled from ER Triage Doc. by RN): PT presents to the ED for evaluation of the right eye. 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 PT states that her vision is blurry. Pt states that her right is burning and itchy, PT stated it feels like sandpaper . PT has a cool damp right on eye. Eye is watery. Eye is visibly red. MI denies blood thinners. History of Present Illness HPI narrative: patient is a 49-year-old female who presents to the ED with complaints of right eye injury prior to arrival. Patient states she was leaning down at her job when a plastic side scraped her in the right eye. She denies any previous injury of the right eye. Related Data Home Medications ?Medication ?Instructions ?Recorded ?Confirmed galcanezumab-gnlm 120 mg/mL 120 mg SQ MONTHLY 09/12/24 09/12/24 subcutaneous syringe (Emgality) Previous Rx's ?Medication ?Instructions ?Recorded albuterol sulfate 90 mcg/actuation 2 puff inhalation Q 6H PRN 09/12/24 aerosol inhaler shortness of breath or wheez ing #8.5 grams benzonatate 100 mg capsule 100 mg PO TID PRN cough #30 caps 09/12/24 doxycycline hyclate 100 mg capsule 100 mg PO BID #20 c aps 09/12/24 guaifenesin 600 mg tablet, 1,200 mg (2 x 600 mg) PO BI D PRN 09/12/24 extended release 12 hr (Mucinex) cough #20 tabs prednisone 20 mg tablet 20 mg PO BID 5 days #10 tabs 09/12/24 erythromycin 5 mg/gram (0.5 %) eye 1 applic ophthalmic (eye) TID 7 03/24/25 ointment days #3.5 grams Allergies Allergy/AdvReac Type Severity Reaction Status Date / Time latex (LATEX) Allergy Unknown Verified 02/05/24 09:33 Penicillins (PENICILLINS) Allergy Unknown Verified 02/05/24 09:33 [facility] <Lissette Lamb APRN - Last Filed: 03/24/25 16:41> [facility] Disclaimer: The information contained in this section may have been updated after the patient was seen, as this information can be updated by other users. Medical History (Updated 03/24/25 @ 16:18 by Lissette Lamb APRN) Anemia Depression Anxiety Migraine Diabetes mellitus type 1 Surgical History (Updated 09/12/24 @ 14:13 by Sophia Morel RN) History of cholecystectomy History of section History of tubal ligation Social History Smoking Status: Never smoker alcohol intake: never substance use type: denies use current occupational status: unemployed Travel in the last 8 weeks?: None household members: family housing: house Have you lived/traveled outside US in past 30 days?: No Contact w/someone who lives/traveled outside US past 30 days?: No Exposure to someone with infectious disease in past 14 days?: No Do you have a fever (greater than 100.4 F or 38 C)?: No Have you tested positive for COVID-19?: No Exposed to someone with COVID-19 in past 14 days?: No Do you have a sore throat?: No Do you have a cough?: No Do you have any weakness?: No Do you have any diarrhea?: No Are you experiencing any unusual bleeding?: No Do you have any muscle aches/pain?: No Do you have any abdominal pain?: No Are you experiencing loss of taste or smell?: No Other Medical History Have you received the Pneumonia Vaccine: No <Lissette Lamb APRN - Last Filed: 03/24/25 16:41> ROS Obtained: Yes Systems reviewed as appropriate & no additional complaints except as documented Physical Exam <Lissette Lamb APRN - Last Filed: 03/24/25 16:41> General General appearance: alert and in no apparent distress Head Head exam: atraumatic and normocephalic Eye Eye exam: Present PERRL, EOMI and conjunctival injection (right eye ); Absent jaundice, discharge, periorbital swelling or periorbital tenderness ENT ENT exam: Present normal exam Neck Neck exam: Present normal inspection Chest Chest inspection: Present normal inspection and symmetric chest wall rise; Absent tenderness Respiratory Respiratory exam: Present normal lung sounds bilaterally Cardiovascular Cardiovascular exam: Present regular rate Abdominal Exam Abdominal exam: Present soft and normal bowel sounds; Absent tenderness Extremities Exam Extremities exam: Present normal inspection and full ROM Back Exam Back exam: Present normal inspection and full ROM Neurological Exam Neurological exam: Present alert and oriented X3 Psychiatric Psychiatric exam: Present normal affect and normal mood Skin Skin exam: Present warm and dry Medical Decision Making <Lissette Lamb APRN - Last Filed: 03/24/25 16:41> Medical Records Screening: Per USPSTF and CDC recommendations, given the prevalence of disease in our region, it is our hospital?s policy to screen for HIV and viral Hepatitis for all patients aged 18 and over and those with ongoing risk factors. Emeterio Inquiry Pt receiving controlled substance: No Vital Signs: 03/24/25 15:50 03/24/25 15:57 03/24/25 16:47 Temperature 98.3 F 98.3 F 98.5 F Temperature Source Oral Oral Oral Pulse Rate 116 H 105 H Pulse Rate [Right] 116 H Respiratory Rate 16 16 17 Blood Pressure 180/95 H 170/82 H Blood Pressure [Right Arm] 180/95 H Blood Pressure Mean [Right Arm] 123 Blood Pressure Source Automatic Cuff Automatic Cuff Blood Pressure Position Supine Sitting 02 Sat by Pulse Oximetry 96 96 Oxygen Delivery Method Room Air Room Air Room Air Orders (Tests/Meds): ED MEDICATIONS Discontinued Medications Generic Name Dose Route Start Last Admin Trade Name Freq PRN Reason Stop Dose Admin Erythromycin 0.5 gm 03/24/25 16:30 03/24/25 16:41 Erythromycin Base 1 Gm Oint...G. OP 03/24/25 16:31 0.5 gm ONCE ONE Administration Eye Irrigation Solution 120 ml 03/24/25 16:30 03/24/25 16:39 Eye Wash Irrigation Soln 118ml Bottle OP 03/24/25 16:31 15 ml ONCE ONE Administration Fluorescein Sodium 1 mg 03/24/25 16:30 03/24/25 16:41 Fluorescein Sodium 1mg Strip OP 03/24/25 16:31 1 mg ONCE ONE Administration Tetracaine HCl 0 ml 03/24/25 16:30 03/24/25 16:40 Tetracaine 0.5% Opth Sophia 15ml OP 03/24/25 16:31 0.1 ml ONCE ONE Administration Medical Decision Narrative: In summary, patient is a 49-year-old female who presents to the ED with complaints of right eye injury prior to arrival. Patient states she was leaning down at her job when a plastic sign scraped her in the right eye. She denies any previous injury of the right eye. States that she has mild, blurry vision. She has burning and irritation of her right eye, describes it as feeling as though there is sandpaper in her eye. Denies bleeding from eye, decreased vision, fever, chills, body aches, chest pain, shortness of breath, abdominal pain. Differential diagnosis corneal abrasion, corneal laceration, injury to pupil, infectious process, among others. Upon initial evaluation patient is alert, oriented and cooperative. She has elevated blood pressure on initial exam. Examination of the right eye reveals right eyes injected, pupil intact. No damage to eyelid. Black light lamp with magnification used, large corneal abrasion noted to the right side of the right eye. Discussed with patient corneal abrasion diagnosis and care. She states that after using the tetracaine drops her pain has resolved. Dye was washed out with eyewash, patient tolerated well. Placed erythromycin ointment in the right eye, sent a prescription for erythromycin to the pharmacy. We discussed use. Advised her to follow-up with eye doctor within 2 days. We discussed return precautions to the ED and patient verbalized understanding. <Familia Kaur MD - Last Filed: 03/24/25 18:20> Vital Signs: 03/24/25 15:50 03/24/25 15:57 03/24/25 16:47 Temperature 98.3 F 98.3 F 98.5 F Temperature Source Oral Oral Oral Pulse Rate 116 H 105 H Pulse Rate [Right] 116 H Respiratory Rate 16 16 17 Blood Pressure 180/95 H 170/82 H Blood Pressure [Right Arm] 180/95 H Blood Pressure Mean [Right Arm] 123 Blood Pressure Source Automatic Cuff Automatic Cuff Blood Pressure Position Supine Sitting 02 Sat by Pulse Oximetry 96 96 Oxygen Delivery Method Room Air Room Air Room Air Orders (Tests/Meds): ED MEDICATIONS Discontinued Medications Generic Name Dose Route Start Last Admin Trade Name Freq PRN Reason Stop Dose Admin Erythromycin 0.5 gm 03/24/25 16:30 03/24/25 16:41 Erythromycin Base 1 Gm Oint...G. OP 03/24/25 16:31 0.5 gm ONCE ONE Administration Eye Irrigation Solution 120 ml 03/24/25 16:30 03/24/25 16:39 Eye Wash Irrigation Soln 118ml Bottle OP 03/24/25 16:31 15 ml ONCE ONE Administration Fluorescein Sodium 1 mg 03/24/25 16:30 03/24/25 16:41 Fluorescein Sodium 1mg Strip OP 03/24/25 16:31 1 mg ONCE ONE Administration Tetracaine HCl 0 ml 03/24/25 16:30 03/24/25 16:40 Tetracaine 0.5% Opth Sophia 15ml OP 03/24/25 16:31 0.1 ml ONCE ONE Administration Medical Decision Narrative: In summary, patient is a 49-year-old female who presents to the ED with complaints of right eye injury prior to arrival. Patient states she was leaning down at her job when a plastic sign scraped her in the right eye. She denies any previous injury of the right eye. States that she has mild, blurry vision. She has burning and irritation of her right eye, describes it as feeling as though there is sandpaper in her eye. Denies bleeding from eye, decreased vision, fever, chills, body aches, chest pain, shortness of breath, abdominal pain. Differential diagnosis corneal abrasion, corneal laceration, injury to pupil, infectious process, among others. Upon initial evaluation patient is alert, oriented and cooperative. She has elevated blood pressure on initial exam. Examination of the right eye reveals right eyes injected, pupil intact. No damage to eyelid. Black light lamp with magnification used, large corneal abrasion noted to the right side of the right eye. Discussed with patient corneal abrasion diagnosis and care. She states that after using the tetracaine drops her pain has resolved. Dye was washed out with eyewash, patient tolerated well. Placed erythromycin ointment in the right eye, sent a prescription for erythromycin to the pharmacy. We discussed use. Advised her to follow-up with eye doctor within 2 days. We discussed return precautions to the ED and patient verbalized understanding. I was consulted by the ANNA, and we discussed the complexity of the problems being addressed. I approved the treatment and management plan for this patient's care in the emergency department, thus performing a substantive portion of the medical decision making. Familia Kaur MD Procedures <Lissette Lamb APRN - Last Filed: 03/24/25 16:41> Eye Exam/FB Removal Location: eye (R) Topical anesthetic used: tetracaine Fluorescein Stick(s) used: Yes Time Out performed: Yes Procedure performed under: direct visualization with magnification Patient tolerated procedure: well (Corneal abrasion of right eye, Celeste sign negative) Critical Care <Lissette Lamb APRN - Last Filed: 03/24/25 16:41> Critical Care Time Critical Care Time: No
[2025-03-24] MEDS: EYE WASH IRRIGATION SOLN 118ML BOTTLE 120 ML OP (16:39)
[2025-03-24] MEDS: TETRACAINE 0.5% OPTH SOL 15ML OP (16:40)
[2025-03-24] MEDS: ERYTHROMYCIN BASE 1 GM OINT...G. 0.5 GM OP (16:41)
[2025-03-24] MEDS: FLUORESCEIN SODIUM 1MG STRIP 1 MG OP (16:41)
[2025-03-24 16:47] VITALS: BP 170/82; PULSE 105; RESP 17; TEMP 36.9; O2SAT 96
== END 2025-03-24 16:49 | disposition home or self-care (01) ==
PROVIDERS: Emergency Provider Emergency Medicine; PCP Student in an Organized Health Care Education/Training Program
DX: S05.01XA Injury of conjunctiva and corneal abrasion without foreign body, right eye, initial encounter (principal); W45.8XXA Other foreign body or object entering through skin, initial encounter
CPT/HCPCS: 99284